=== PATIENT | female | born 1980 | race Hispanic/Latino ===

== ENCOUNTER 2019-07-18 18:58 | Inpatient (IN) | payer OTHER ==
[~2019-07-18] VITALS: Ht 162.6 cm; Wt 75.6 kg
[2019-07-18 01:10] VITALS: BP 142/70
[2019-07-18 20:09] LABS: BASOPHILS % (AUTO) 0.6 % (0.0-5.0); EOSINOPHILS % (AUTO) 1.1 % (0.0-8.0); HEMATOCRIT 32.4 % (36-48); LYMPHOCYTES % (AUTO) 9.5 % (21.0-51.0); MEAN CORPUSCULAR HGB CONC 35.8 g/dL (32.0-36.0); NEUTROPHILS % (AUTO) 80.9 % (40.0-77.0); PLATELET COUNT (AUTO) 242 K/uL (130-400); RED BLOOD CELL COUNT(AUTO) 3.52 MIL/uL (4.00-5.50); WHITE BLOOD COUNT (AUTO) 18.1 K/uL (4.8-10.8)
[2019-07-18 20:21] LABS: INR 1.27 (0.85-1.15); PARTIAL THROMBOPLASTIN TIME 30.6 SEC (26.3-35.5); PROTHROMBIN TIME 13.6 SEC (9.6-11.6)
[2019-07-18 20:22] LABS: CREATININE 0.9 mg/dL (0.5-1.5); POTASSIUM 3.7 mmol/L (3.5-5.1)
[2019-07-18] MEDS ORDERED: ONDANSETRON HCL 4 MG/2 ML VIAL ONE (20:24)
[2019-07-18] MEDS ORDERED: MORPHINE SULFATE 4 MG/1ML SYG ONE (20:24)
[2019-07-18] MEDS ORDERED: ZOSYN 3.375GM+NS 50ML 50 ML IV ONE (20:24)
[2019-07-18 20:30] LABS: PLATELET MORPHOLOGY LARGE PLTS PRESENT
[2019-07-18 20:35] LABS: ALBUMIN 1.6 g/dL (3.5-5.0)
[2019-07-18 20:38] LABS: BILIRUBIN,TOTAL 21.2 mg/dL (0.2-1.0)
[2019-07-18] MEDS ORDERED: DiphenhydrAMINE HCL 50 MG/ML VIAL IV PRN (22:30)
[2019-07-18] MEDS ORDERED: ONDANSETRON HCL 4 MG/2 ML VIAL IV PRN (22:30)
[2019-07-18] MEDS: LACTULOSE 20 GM/30 ML UDCUP PO SCH (22:30)
[2019-07-18] MEDS ORDERED: HYDRALAZINE HCL 20 MG/ML VIAL IV PRN (22:45)
[2019-07-18] MEDS ORDERED: MORPHINE SULFATE 2 MG/ML 1ML SYG ONE (23:05)
[2019-07-18] MEDS ORDERED: LACTULOSE 20 GM/30 ML UDCUP ONE (23:42)
[2019-07-18] MEDS ORDERED: PHARMACY COMMUNICATION MISC SCH (23:45)
[2019-07-19] VITALS (18 sets, daily range): BP systolic 115–142; BP diastolic 55–80
[2019-07-19] MEDS ORDERED: ATOR10 PO (01:50)
[2019-07-19] MEDS ORDERED: METO50TA18 PO (01:50)
[2019-07-19] MEDS ORDERED: HYDR-3830 PO (01:50)
[2019-07-19] MEDS ORDERED: DOXE50CA4 PO (01:50)
[2019-07-19] MEDS: MORPHINE SULFATE 2 MG/ML 1ML SYG IV PRN ×5 (03:05→22:24)
[2019-07-19] MEDS: LACTULOSE 20 GM/30 ML UDCUP PO SCH ×3 (03:56→21:17)
[2019-07-19] MEDS: ZOSYN 3.375GM+NS 50ML 50 ML IV SCH ×3 (03:56→21:17)
[2019-07-19 04:03] LABS: BASOPHILS % (AUTO) 0.6 % (0.0-5.0); EOSINOPHILS % (AUTO) 0.7 % (0.0-8.0); HEMATOCRIT 32.2 % (36-48); LYMPHOCYTES % (AUTO) 7.4 % (21.0-51.0); MEAN CORPUSCULAR HEMOGLOBIN 33.1 pg (27.0-33.0); MEAN CORPUSCULAR HGB CONC 36.6 g/dL (32.0-36.0); MEAN CORPUSCULAR VOLUME 90.4 fL (79-99); MONOCYTES % (AUTO) 7.4 % (3.0-13.0); NEUTROPHILS % (AUTO) 82.8 % (40.0-77.0); PLATELET COUNT (AUTO) 248 K/uL (130-400); RED BLOOD CELL COUNT(AUTO) 3.56 MIL/uL (4.00-5.50); RED CELL DISTRIBUTION WIDTH 20.3 % (11.0-15.5); WHITE BLOOD COUNT (AUTO) 18.9 K/uL (4.8-10.8)
[2019-07-19 04:43] LABS: CREATININE 0.9 mg/dL (0.5-1.5); POTASSIUM 3.8 mmol/L (3.5-5.1)
[2019-07-19] MEDS ORDERED: INSULIN HUMULIN R 100 UNIT/ML 3ML ONE (05:38)
[2019-07-19] MEDS: INSULIN HUMULIN R 100 UNIT/ML 3ML SQ SCH ×4 (05:41→20:22)
[2019-07-19] MEDS: PANTOPRAZOLE SODIUM 40 MG TABLET.DR PO SCH (08:57)
[2019-07-19] MEDS ORDERED: ALBUMIN (HUMAN) 25% 200 ML IV SCH (11:15)
--- NOTE | 2019-07-19 11:20 | NUR ---
U/S GUIDED PARACENTESIS PROCEDURE PERFORMED BY DR. CORBETT. PUNCTURE SITE RIGHT LOWER QUADRANT OF ABDOMEN AND PATIENT TOLERATED PROCEDURE WELL. TOTAL REMOVED 6.2 LITERS OF CLOUDY YELLOW ASCITES FLUID. END OF PROCEDURE AT 1135. CATHETER REMOVED AND DRESSING APPLIED. NO BLEEDING NOTED. ALBUMIN 25% 50 GRAMS ORDERED PER [facility] ALBUMIN PROTOCOL TO BE GIVEN UPON ARRIVAL TO FLOOR. CALLED REPORT TO CARMEN MALDONADO. PATIENT TRANSPORTED VIA BED TO ROOM 312 @ 1205. PT STABLE, AAO X3 WITH NO C/O PAIN. SPECIMEN COLLECTED AND SENT TO LAB. Addendum: 07/19/19 at 1446 by ADAM MENJIVAR RN RN U/S GUIDED PARACENTESIS PROCEDURE PERFORMED BY DR. CORBETT. PUNCTURE SITE RIGHT LOWER QUADRANT OF ABDOMEN AND PATIENT TOLERATED PROCEDURE WELL. TOTAL REMOVED 3.5 LITERS OF CLOUDY YELLOW ASCITES FLUID. END OF PROCEDURE AT 1135. CATHETER REMOVED AND DRESSING APPLIED. NO BLEEDING NOTED. ALBUMIN 25% 50 GRAMS ORDERED PER [facility] ALBUMIN PROTOCOL TO BE GIVEN UPON ARRIVAL TO FLOOR. CALLED REPORT TO CARMEN MALDONADO. PATIENT TRANSPORTED VIA BED TO ROOM 312 @ 1205. PT STABLE, AAO X3 WITH NO C/O PAIN. SPECIMEN COLLECTED AND SENT TO LAB.
[2019-07-19 11:27] LABS: ALBUMIN 1.6 g/dL (3.5-5.0)
[2019-07-19 11:29] LABS: BILIRUBIN,DIRECT 18.2 mg/dL (0.0-0.3); BILIRUBIN,TOTAL 21.2 mg/dL (0.2-1.0)
[2019-07-19] MEDS: DiphenhydrAMINE HCL 50 MG/ML VIAL IV PRN ×3 (12:42→22:24)
[2019-07-19 13:15] LABS: APPEARANCE BODY FLUID CLEAR (CLEAR); BODY FLUID WBC 43 /cu. mm.; COLOR,BODY FLUID YELLOW (LT YELLOW); SPECIMENTYPE,BODY FLUID ASCITES; TOTAL VOLUME,BODY FLUID 3500 mL
[2019-07-19 13:16] LABS: BODY FLUID RBC 59 /cu. mm.
[2019-07-19 13:49] LABS: BF LYMPHOCYTE 43 %; BF MESOTHELIAL 23 %; BF MONOCYTE 24 %
[2019-07-19] MEDS: FUROSEMIDE 20 MG TABLET PO SCH ×2 (14:01→23:47)
--- NOTE | 2019-07-19 17:05 | NUR ---
MET W PATIENT FOR DC PLANNING TY Vick HX OF LIVER DISEASE, STATES SYMPTOMS SINCE 10/2018, DX IN JANUARY 2019, PLACED ON TRANSPLANT LIST IN [place]- HAS HAD APPT IN [place], FOLLOWS WITH BLOOD WORK, LOST JOB IN [place] [facility], NO CALL BACK FROM [facility] AND NO BLOOD WORK SINCE THEN. NOT ON LACTULOSE, ON ANOTHER MED TO 'BRING DOWN THE BILIRUBIN ' STATES NOW NEEDS A WALKER BUT DOES NOT HAVE ONE. STATES TOO WEAK TO GET OUT OF BED. STATES NEEDS TO GET LIVER TRANSPLANT. WILL ASK PATIENT TO MAKE CONTACT WITH TR[facility]ANT CENTER- IF SHE IS STLL ON LIST, [facility] CAN SENT RECORDS/LABS FROM THIS ADMISSION TO KEEP HER UP TO DATE DCP WILL BE TO HOME. DISCUSSED CASE WITH DR. Ambriz, PT VERY SICK, W KAMARPLE WOUNDS PT MEETS CRITERIA FOR HOSPICE. CM TO FOLLOW Addendum: 07/19/19 at 1710 by DAWIT ELIZABETH RN CM Amended: Links added.
[2019-07-19] MEDS: SPIRONOLACTONE 25 MG TAB PO SCH (21:17)
[2019-07-20 00:02] VITALS: BP 124/61
[2019-07-20] MEDS: DiphenhydrAMINE HCL 50 MG/ML VIAL IV PRN ×5 (02:32→23:16)
[2019-07-20] MEDS: MORPHINE SULFATE 2 MG/ML 1ML SYG IV PRN ×2 (02:32→06:04)
[2019-07-20 04:08] VITALS: BP 118/54
[2019-07-20 04:51] LABS: BASOPHILS % (AUTO) 0.6 % (0.0-5.0); EOSINOPHILS % (AUTO) 1.4 % (0.0-8.0); HEMATOCRIT 29.9 % (36-48); LYMPHOCYTES % (AUTO) 10.5 % (21.0-51.0); MEAN CORPUSCULAR HEMOGLOBIN 32.8 pg (27.0-33.0); MEAN CORPUSCULAR HGB CONC 36.5 g/dL (32.0-36.0); MEAN CORPUSCULAR VOLUME 90.1 fL (79-99); NEUTROPHILS % (AUTO) 79.8 % (40.0-77.0); PLATELET COUNT (AUTO) 232 K/uL (130-400); RED BLOOD CELL COUNT(AUTO) 3.32 MIL/uL (4.00-5.50); RED CELL DISTRIBUTION WIDTH 20.4 % (11.0-15.5); WHITE BLOOD COUNT (AUTO) 16.2 K/uL (4.8-10.8)
[2019-07-20] MEDS: ZOSYN 3.375GM+NS 50ML 50 ML IV SCH ×3 (05:13→23:10)
[2019-07-20 05:36] LABS: ALBUMIN 1.4 g/dL (3.5-5.0); CREATININE 0.8 mg/dL (0.5-1.5); POTASSIUM 3.6 mmol/L (3.5-5.1); TOTAL PROTEIN, SERUM 4.4 g/dL (6.0-8.3)
[2019-07-20] MEDS: LACTULOSE 20 GM/30 ML UDCUP PO SCH ×3 (05:46→21:31)
[2019-07-20 05:47] LABS: BILIRUBIN,TOTAL 19.4 mg/dL (0.2-1.0)
[2019-07-20] MEDS: INSULIN HUMULIN R 100 UNIT/ML 3ML SQ SCH ×4 (06:11→21:00)
[2019-07-20 08:00] VITALS: BP 102/54
[2019-07-20] MEDS ORDERED: VANCOMYCIN PROTOCOL PER PHARMACY IV SCH (09:00)
[2019-07-20] MEDS: PANTOPRAZOLE SODIUM 40 MG TABLET.DR PO SCH (10:48)
[2019-07-20] MEDS: SPIRONOLACTONE 25 MG TAB PO SCH ×2 (10:48→21:31)
[2019-07-20] MEDS ORDERED: KETOROLAC TROMETHAMINE 15MG/ML ONE (10:51)
[2019-07-20] MEDS: VANCOMYCIN 1GM+NS 250ML 250 ML IV SCH ×2 (11:15→21:31)
[2019-07-20 12:00] VITALS: BP 127/64
[2019-07-20] MEDS: HONEY 1 APPL/ML TUBE TP SCH (13:33)
[2019-07-20] MEDS: FUROSEMIDE 20 MG TABLET PO SCH (13:34)
[2019-07-20 16:00] VITALS: BP 96/50
[2019-07-20] MEDS: KETOROLAC TROMETHAMINE 15MG/ML IV PRN ×2 (16:54→23:24)
[2019-07-20 19:58] LABS: AMPHET/METH SCREEN,URINE NEGATIVE (NEGATIVE); BARBITURATE SCREEN, URINE NEGATIVE (NEGATIVE); BENZODIAZEPINES SCREEN,URINE NEGATIVE (NEGATIVE); CANNABINOID SCREEN,URINE POSITIVE (NEGATIVE); COCAINE SCREEN,URINE NEGATIVE (NEGATIVE); OPIATE SCREEN,URINE POSITIVE (NEGATIVE); PHENCYCLIDINE SCREEN,URINE NEGATIVE (NEGATIVE)
[2019-07-20 20:00] VITALS: BP 107/53
[2019-07-20] MEDS: RIFAMPIN 300 MG CAPSULE PO SCH (21:31)
[2019-07-21] VITALS (7 sets, daily range): BP systolic 106–126; BP diastolic 54–61
[2019-07-21] MEDS: FUROSEMIDE 20 MG TABLET PO SCH (00:03)
[2019-07-21] MEDS: ZOSYN 3.375GM+NS 50ML 50 ML IV SCH ×3 (05:14→21:31)
[2019-07-21] MEDS: DiphenhydrAMINE HCL 50 MG/ML VIAL IV PRN ×3 (05:26→22:29)
[2019-07-21] MEDS: KETOROLAC TROMETHAMINE 15MG/ML IV PRN (05:26)
[2019-07-21] MEDS: INSULIN HUMULIN R 100 UNIT/ML 3ML SQ SCH ×4 (05:28→21:00)
[2019-07-21 05:54] LABS: BASOPHILS % (AUTO) 0.7 % (0.0-5.0); EOSINOPHILS % (AUTO) 1.8 % (0.0-8.0); HEMATOCRIT 30.5 % (36-48); LYMPHOCYTES % (AUTO) 10.4 % (21.0-51.0); MEAN CORPUSCULAR HGB CONC 36.4 g/dL (32.0-36.0); MEAN CORPUSCULAR VOLUME 90.8 fL (79-99); MONOCYTES % (AUTO) 7.3 % (3.0-13.0); PLATELET COUNT (AUTO) 223 K/uL (130-400); RED BLOOD CELL COUNT(AUTO) 3.36 MIL/uL (4.00-5.50); RED CELL DISTRIBUTION WIDTH 20.5 % (11.0-15.5); WHITE BLOOD COUNT (AUTO) 12.6 K/uL (4.8-10.8)
[2019-07-21 06:19] LABS: ALBUMIN 1.3 g/dL (3.5-5.0); CREATININE 1.2 mg/dL (0.5-1.5); POTASSIUM 3.6 mmol/L (3.5-5.1); TOTAL PROTEIN, SERUM 4.2 g/dL (6.0-8.3)
[2019-07-21 06:21] LABS: BILIRUBIN,TOTAL 19.1 mg/dL (0.2-1.0)
[2019-07-21] MEDS: LACTULOSE 20 GM/30 ML UDCUP PO SCH ×3 (06:56→21:35)
[2019-07-21] MEDS: SPIRONOLACTONE 25 MG TAB PO SCH (09:33)
[2019-07-21] MEDS: PANTOPRAZOLE SODIUM 40 MG TABLET.DR PO SCH (09:33)
[2019-07-21] MEDS: RIFAMPIN 300 MG CAPSULE PO SCH ×2 (09:33→21:31)
[2019-07-21] MEDS: VANCOMYCIN 1GM+NS 250ML 250 ML IV SCH ×2 (09:34→21:00)
[2019-07-21] MEDS ORDERED: RENAL DOSE IV SCH (10:15)
[2019-07-21] MEDS: HONEY 1 APPL/ML TUBE TP SCH (12:17)
--- NOTE | 2019-07-21 21:29 | NUR ---
Re: trough 24.3 Scheduled Vancomycin at this time held due to elevated trough 24.3
[2019-07-22] MEDS: DiphenhydrAMINE HCL 50 MG/ML VIAL IV PRN ×4 (02:04→21:45)
[2019-07-22 03:37] VITALS: BP 103/61
[2019-07-22 05:44] LABS: BASOPHILS % (AUTO) 0.7 % (0.0-5.0); EOSINOPHILS % (AUTO) 1.4 % (0.0-8.0); HEMATOCRIT 31.9 % (36-48); LYMPHOCYTES % (AUTO) 7.9 % (21.0-51.0); MEAN CORPUSCULAR HEMOGLOBIN 32.8 pg (27.0-33.0); MEAN CORPUSCULAR HGB CONC 35.7 g/dL (32.0-36.0); MEAN CORPUSCULAR VOLUME 91.7 fL (79-99); MONOCYTES % (AUTO) 6.9 % (3.0-13.0); NEUTROPHILS % (AUTO) 82.3 % (40.0-77.0); PLATELET COUNT (AUTO) 238 K/uL (130-400); RED BLOOD CELL COUNT(AUTO) 3.48 MIL/uL (4.00-5.50); RED CELL DISTRIBUTION WIDTH 21.1 % (11.0-15.5); WHITE BLOOD COUNT (AUTO) 17.2 K/uL (4.8-10.8)
[2019-07-22] MEDS: INSULIN HUMULIN R 100 UNIT/ML 3ML SQ SCH ×4 (05:57→20:29)
[2019-07-22] MEDS: ZOSYN 3.375GM+NS 50ML 50 ML IV SCH ×3 (05:57→20:28)
[2019-07-22 06:09] LABS: ALBUMIN 1.3 g/dL (3.5-5.0); CREATININE 1.2 mg/dL (0.5-1.5); POTASSIUM 3.6 mmol/L (3.5-5.1); TOTAL PROTEIN, SERUM 4.1 g/dL (6.0-8.3)
[2019-07-22 06:31] LABS: BILIRUBIN,TOTAL 19.5 mg/dL (0.2-1.0)
--- NOTE | 2019-07-22 07:08 | NUR ---
Re: Scheduled Lactulose Incoming shift Jarrod MORALES made aware that scheduled Lactulose for 629 still pending to be given as pt fell asleep at around 0500. Pt noted sleeps at interval due to claimed of being in pain/ itching, but noted falls back to sleep after Benadryl is given.
[2019-07-22 08:26] VITALS: BP 115/53
[2019-07-22] MEDS: RIFAMPIN 300 MG CAPSULE PO SCH ×2 (08:41→20:28)
[2019-07-22] MEDS: PANTOPRAZOLE SODIUM 40 MG TABLET.DR PO SCH (08:41)
[2019-07-22] MEDS: LACTULOSE 20 GM/30 ML UDCUP PO SCH ×3 (08:41→21:42)
[2019-07-22] MEDS: VANCOMYCIN 1GM+NS 250ML 250 ML IV SCH ×2 (10:10→20:28)
[2019-07-22 11:57] VITALS: BP 121/71
[2019-07-22] MEDS ORDERED: ZOSYN 3.375GM+NS 50ML 50 ML IV ONE (12:02)
[2019-07-22] MEDS: HONEY 1 APPL/ML TUBE TP SCH (12:57)
[2019-07-22] MEDS ORDERED: ACETAMINOPHEN EXTRA STRENGTH 500 MG TABLET ONE (14:09)
[2019-07-22 16:00] VITALS: BP 139/69
[2019-07-22 19:00] VITALS: BP 116/63
[2019-07-22] MEDS: ACETAMINOPHEN EXTRA STRENGTH 500 MG TABLET PO PRN (20:29)
--- NOTE | 2019-07-22 20:30 | NUR ---
MEDS PT CLAIMS OF PAINS ON HER LEGS. SHIFT ASSESSMENT DONE, PLEASE REFER TO CHART. DUE MEDS ADMINISTERED, TOLERATED WELL. INSERTED SECOND PIV FOR IV ANTIBIOTIC INFUSION.. TOLERATED INSERTION WELL. TYLENOL PO GIVEN FOR PAINS. KEPT RESTED AND COMFORTABLE IN BED. GIVEN JUICE AND APPLE SAUCE REQUESTED. WILL RE-ASSESS PT. Addendum: 07/23/19 at 0039 by АНДРЕЙ SANDHU RN RN Amended: Links added.
--- NOTE | 2019-07-22 21:45 | NUR ---
MEDS PT COMPLAINTS OF ITCHING, BENADRYL IV ADMINISTERED, TOLERATED WELL. KEPT COMFORTABLE IN BED. WILL MONITOR PT.
[2019-07-22 23:00] VITALS: BP 122/62
--- NOTE | 2019-07-22 23:35 | NUR ---
PAIN PT CALLS AND CLAIMS OF PAINS ON HER LEGS. CALLED VALARIE CERAMIC CHEMIST SENIOR PHARMACY TECHNICIAN FOR HOSPITALIST, VIA ANSWERING SERVICE. CERAMIC CHEMIST CALLED BACK AND REFERRED PT'S PAINS. NEW MED ORDER FOR ONE TIME MORPHINE GIVEN. WILL MEDICATE PT.
[2019-07-22] MEDS ORDERED: MORPHINE SULFATE 2 MG/ML 1ML SYG ONE (23:41)
[2019-07-22] MEDS ORDERED: MORPHINE SULFATE 2 MG/ML 1ML SYG IVP ONE (23:45)
--- NOTE | 2019-07-23 02:00 | NUR ---
ITCHING PT COMPLAINTS OF GENERALIZED ITCHING. MEDICATED WITH BENADRYL IV. ENCOURAGED TO REST AND SLEEP. CALL LIGHT WITHIN REACH. WILL RE-ASSESS PT.
[2019-07-23] MEDS: DiphenhydrAMINE HCL 50 MG/ML VIAL IV PRN ×4 (02:08→22:04)
[2019-07-23 03:00] VITALS: BP 127/68
[2019-07-23] MEDS: ZOSYN 3.375GM+NS 50ML 50 ML IV SCH (05:07)
--- NOTE | 2019-07-23 05:07 | NUR ---
MEDS PT IS FAIRLY ASLEEP. NO DISTRESS NOTED. IV ZOSYN HUNG. PO LACTULOSE NOT GIVEN PT HAVE HAD SEVERAL BM'S THROUGHOUT THE SHIFT AND PT REFUSES TO TAKE MED. FOR MORE CARE.
[2019-07-23] MEDS: ACETAMINOPHEN EXTRA STRENGTH 500 MG TABLET PO PRN ×3 (05:10→16:33)
[2019-07-23] MEDS: LACTULOSE 20 GM/30 ML UDCUP PO SCH ×3 (05:38→21:54)
[2019-07-23] MEDS: INSULIN HUMULIN R 100 UNIT/ML 3ML SQ SCH ×4 (05:51→21:00)
[2019-07-23 07:30] VITALS: BP 134/69
[2019-07-23 08:38] LABS: BASOPHILS % (AUTO) 0.6 % (0.0-5.0); EOSINOPHILS % (AUTO) 1.5 % (0.0-8.0); HEMATOCRIT 35.1 % (36-48); LYMPHOCYTES % (AUTO) 10.1 % (21.0-51.0); MEAN CORPUSCULAR HEMOGLOBIN 33.2 pg (27.0-33.0); MEAN CORPUSCULAR HGB CONC 36.2 g/dL (32.0-36.0); MEAN CORPUSCULAR VOLUME 91.6 fL (79-99); MONOCYTES % (AUTO) 7.1 % (3.0-13.0); PLATELET COUNT (AUTO) 252 K/uL (130-400); RED BLOOD CELL COUNT(AUTO) 3.83 MIL/uL (4.00-5.50); RED CELL DISTRIBUTION WIDTH 21.2 % (11.0-15.5); WHITE BLOOD COUNT (AUTO) 16.3 K/uL (4.8-10.8)
[2019-07-23 09:10] LABS: ALBUMIN 1.4 g/dL (3.5-5.0); POTASSIUM 3.8 mmol/L (3.5-5.1); TOTAL PROTEIN, SERUM 4.5 g/dL (6.0-8.3)
[2019-07-23 09:13] LABS: BILIRUBIN,TOTAL 20.5 mg/dL (0.2-1.0)
[2019-07-23] MEDS: PANTOPRAZOLE SODIUM 40 MG TABLET.DR PO SCH (10:12)
[2019-07-23] MEDS: RIFAMPIN 300 MG CAPSULE PO SCH (10:12)
[2019-07-23 11:00] VITALS: BP 129/63
--- NOTE | 2019-07-23 11:00 | NUR ---
DISCUSSED CASE WITH DR. YBARRA. SEVERE LIVER DISEASE. CM ASKING RE: PALLIATIVE CARE APPROACH? POSSIBLE HOSPICE? STATES OPTIMUM PLAN IS TO HAVE GI TO DISCUSS STAGE OF LIVER DISEASE PRIOR TO DISCUSSING PALLIATIVE CARE. CM TO FOLLOW AND ASSIST NEEDED. MAY NEED [facility] APPROVIAL ON DISCHARGE Addendum: 07/24/19 at 0859 by DAWIT ELIZABETH RN CM Amended: Links added.
[2019-07-23] MEDS: HONEY 1 APPL/ML TUBE TP SCH (12:45)
[2019-07-23 16:00] VITALS: BP 148/61
[2019-07-23] MEDS: CHOLESTYRAMINE PACKET 4 GM PACKET PO SCH ×2 (16:29→21:53)
[2019-07-23] MEDS: AMOXICILLIN/POTASSIUM CLAV 500-125 TABLET PO SCH ×2 (16:29→21:54)
[2019-07-23] MEDS: FUROSEMIDE 20 MG TABLET PO SCH (16:30)
[2019-07-23 20:25] VITALS: BP 126/64
[2019-07-23] MEDS: CHLORDIAZEPOXIDE HCL 25 MG CAP PO SCH (21:53)
[2019-07-23] MEDS: MIRTAZAPINE 15 MG TABLET PO SCH (21:53)
[2019-07-23] MEDS: TRAMADOL HCL 50 MG TABLET PO PRN (21:54)
[2019-07-23 23:57] VITALS: BP 136/69
[2019-07-24] MEDS: ACETAMINOPHEN EXTRA STRENGTH 500 MG TABLET PO PRN (01:55)
[2019-07-24] MEDS: AMOXICILLIN/POTASSIUM CLAV 500-125 TABLET PO SCH ×3 (03:24→23:06)
[2019-07-24] MEDS: DiphenhydrAMINE HCL 50 MG/ML VIAL IV PRN ×3 (03:25→19:45)
[2019-07-24 03:48] VITALS: BP 128/76
[2019-07-24] MEDS: TRAMADOL HCL 50 MG TABLET PO PRN ×2 (05:21→19:45)
[2019-07-24] MEDS: INSULIN HUMULIN R 100 UNIT/ML 3ML SQ SCH ×4 (05:52→21:00)
[2019-07-24] MEDS: LACTULOSE 20 GM/30 ML UDCUP PO SCH ×3 (05:52→21:00)
[2019-07-24 05:56] LABS: ALBUMIN 1.6 g/dL (3.5-5.0); POTASSIUM 3.8 mmol/L (3.5-5.1); TOTAL PROTEIN, SERUM 4.9 g/dL (6.0-8.3)
[2019-07-24 06:01] LABS: BILIRUBIN,DIRECT 18.3 mg/dL (0.0-0.3); BILIRUBIN,TOTAL 20.9 mg/dL (0.2-1.0)
[2019-07-24 07:30] VITALS: BP 129/67
[2019-07-24] MEDS: CHLORDIAZEPOXIDE HCL 25 MG CAP PO SCH ×2 (09:00→23:10)
[2019-07-24] MEDS ORDERED: KETOROLAC TROMETHAMINE 15MG/ML IV PRN (09:00)
--- NOTE | 2019-07-24 09:00 | NUR ---
DISPO PLAN TO HOME WITH SUPPORT FOR WOUND CARE AND MED MANAGEMENT. CM TO DISCUSS SUPPPORT SYSTEMS WITH PATIENT Addendum: 07/24/19 at 0900 by DAWIT ELIZABETH RN CM Amended: Links added.
[2019-07-24] MEDS: SPIRONOLACTONE 25 MG TAB PO SCH (10:21)
[2019-07-24] MEDS: FUROSEMIDE 20 MG TABLET PO SCH (10:22)
[2019-07-24] MEDS: PANTOPRAZOLE SODIUM 40 MG TABLET.DR PO SCH (10:22)
[2019-07-24] MEDS: CITALOPRAM 20 MG TABLET PO SCH (10:22)
[2019-07-24] MEDS: CHOLESTYRAMINE PACKET 4 GM PACKET PO SCH ×2 (10:23→23:06)
[2019-07-24] MEDS: ENOXAPARIN SODIUM 30 MG/0.3 ML SQ SCH (10:36)
[2019-07-24 11:00] VITALS: BP 133/70
[2019-07-24 16:00] VITALS: BP 145/74
[2019-07-24] MEDS ORDERED: SPIRONOLACTONE 25 MG TAB PO SCH (17:00)
[2019-07-24] MEDS: HONEY 1 APPL/ML TUBE TP SCH (18:35)
[2019-07-24 19:40] VITALS: BP 130/61
[2019-07-24] MEDS: FUROSEMIDE 40 MG TABLET PO SCH (23:06)
[2019-07-24] MEDS: MIRTAZAPINE 15 MG TABLET PO SCH (23:06)
[2019-07-24 23:24] VITALS: BP 138/67
[2019-07-25] MEDS: DiphenhydrAMINE HCL 50 MG/ML VIAL IV PRN ×4 (02:44→20:48)
[2019-07-25] MEDS: TRAMADOL HCL 50 MG TABLET PO PRN ×2 (02:48→20:55)
[2019-07-25 03:25] VITALS: BP 129/67
[2019-07-25] MEDS: AMOXICILLIN/POTASSIUM CLAV 500-125 TABLET PO SCH ×3 (03:55→20:47)
[2019-07-25 06:50] LABS: ALBUMIN 1.3 g/dL (3.5-5.0); CREATININE 0.9 mg/dL (0.5-1.5); POTASSIUM 3.5 mmol/L (3.5-5.1); TOTAL PROTEIN, SERUM 4.2 g/dL (6.0-8.3)
[2019-07-25] MEDS: INSULIN HUMULIN R 100 UNIT/ML 3ML SQ SCH ×4 (07:02→20:56)
[2019-07-25 08:00] VITALS: BP 131/67
[2019-07-25] MEDS: SPIRONOLACTONE 25 MG TAB PO SCH (08:38)
[2019-07-25] MEDS: FUROSEMIDE 40 MG TABLET PO SCH ×2 (08:39→20:47)
[2019-07-25] MEDS: PANTOPRAZOLE SODIUM 40 MG TABLET.DR PO SCH (08:39)
[2019-07-25] MEDS: CITALOPRAM 20 MG TABLET PO SCH (08:39)
[2019-07-25] MEDS: LACTULOSE 20 GM/30 ML UDCUP PO SCH ×2 (08:40→20:56)
[2019-07-25] MEDS: ENOXAPARIN SODIUM 30 MG/0.3 ML SQ SCH (08:41)
[2019-07-25] MEDS: CHOLESTYRAMINE PACKET 4 GM PACKET PO SCH ×2 (08:47→20:47)
[2019-07-25] MEDS: CHLORDIAZEPOXIDE HCL 25 MG CAP PO SCH (08:54)
[2019-07-25 11:00] VITALS: BP 133/70
[2019-07-25 13:11] LABS: PARTIAL THROMBOPLASTIN TIME 54.6 SEC (26.3-35.5)
[2019-07-25 13:17] LABS: INR 4.13 (0.85-1.15); PROTHROMBIN TIME 42.2 SEC (9.6-11.6)
--- NOTE | 2019-07-25 13:32 | NUR ---
RDSCREEN - LOS X 7 Pt admitted with alcoholic liver cirrhosis, Ascites, BLE swelling. Pt with Heart Healthy diet order in place. No complaint of GI distress, Fair PO intake at 75%, as per EMR. Pt with Contact isolation; RD attempt to call Pt x2 for nutritional assessment and education, no answer. Pt with BLE 2+ pitting edema. Pt with Left and Right Leg ulcers. Recommend Multivitamin and Thiamine supplementation QD Recommend Kunal BID, 500mg Vit C (BID), 220mg ZnSO4 (QD) for wound healing support Recommend 30mL ProMod TID RD to follow up with Nutrition education RD to continue to monitor. Please notify RD as additional nutrition concerns arise. Thank you. Addendum: 07/25/19 at [address] RD Amended: Links added.
--- NOTE | 2019-07-25 13:36 | NUR ---
NUTRITION EDUCATION ATTEMPT Pt with Contact isolation; RD attempt to call Pt x2 for Cirrhosis and Kunal nutrition education, no answer. RD to place reference materials in Pt chart and follow up for nutrition education. Addendum: 07/25/19 at [address] RD Amended: Links added.
--- NOTE | 2019-07-25 14:00 | NUR ---
DR. YBARRA AWARE OF PT 42.[address] OF THE BRAIN/ HEAD ORDERED. HE ALSO SPOKE WITH DR. DE LA ROSA REGARDING MRCP. NO FUTCHER ORDERS AT THIS TIME.
[2019-07-25] MEDS: HONEY 1 APPL/ML TUBE TP SCH (14:44)
[2019-07-25] MEDS ORDERED: PHYTONADIONE 10 MG/1 ML AMP IM SCH (14:45)
[2019-07-25 16:00] VITALS: BP 144/60
--- NOTE | 2019-07-25 16:47 | NUR ---
Palliative/Hospice SW met with pt who was emotional, states she is in agreement with MD recommendation for hospice. Pt wants to go home to aunts house at discharge. Sw asked if I could talk to aunt and verify that she is ok with this dcp. Pt gave consent for Sw to call aunt. Sw provided pt with emotional support. Sw spoke to aunt Corin Barnes. Aunt states that her of same thing 2 years ago while on hospice. Aunt states that she is 76yrs old and can not be pt's caregiver. Aunt states that she will need to discuss dcp with pt's father who lives in [place]. Aunt states that pt's father mentioned taking pt back to [place] at [place]. Sw educated on hospice house with [facility] if she remains in the [place]. Aunt to come visit with pt tomorrow after aunt talks to pt's father. Aunt has contact # for [facility] for updates.
[2019-07-25] MEDS: MIRTAZAPINE 15 MG TABLET PO SCH (20:47)
[2019-07-25 21:30] VITALS: BP 129/61
[2019-07-26] VITALS: BP 123/66
[2019-07-26] MEDS: DiphenhydrAMINE HCL 50 MG/ML VIAL IV PRN ×4 (03:46→20:36)
[2019-07-26] MEDS: AMOXICILLIN/POTASSIUM CLAV 500-125 TABLET PO SCH ×3 (03:51→20:35)
[2019-07-26 03:58] VITALS: BP 139/58
[2019-07-26 05:38] LABS: BASOPHILS % (AUTO) 0.9 % (0.0-5.0); EOSINOPHILS % (AUTO) 1.6 % (0.0-8.0); HEMATOCRIT 32.1 % (36-48); LYMPHOCYTES % (AUTO) 10.2 % (21.0-51.0); MEAN CORPUSCULAR HGB CONC 35.8 g/dL (32.0-36.0); MEAN CORPUSCULAR VOLUME 92.2 fL (79-99); MONOCYTES % (AUTO) 6.4 % (3.0-13.0); NEUTROPHILS % (AUTO) 80.1 % (40.0-77.0); PLATELET COUNT (AUTO) 273 K/uL (130-400); RED BLOOD CELL COUNT(AUTO) 3.48 MIL/uL (4.00-5.50)
[2019-07-26 05:49] LABS: INR 1.85 (0.85-1.15); PARTIAL THROMBOPLASTIN TIME 39.2 SEC (26.3-35.5); PROTHROMBIN TIME 19.5 SEC (9.6-11.6)
[2019-07-26 06:03] LABS: ALBUMIN 1.4 g/dL (3.5-5.0); CREATININE 0.8 mg/dL (0.5-1.5); POTASSIUM 3.6 mmol/L (3.5-5.1); TOTAL PROTEIN, SERUM 4.6 g/dL (6.0-8.3)
[2019-07-26 06:12] LABS: BILIRUBIN,TOTAL 16.7 mg/dL (0.2-1.0)
[2019-07-26] MEDS: INSULIN HUMULIN R 100 UNIT/ML 3ML SQ SCH ×4 (07:30→20:23)
[2019-07-26 08:00] VITALS: BP 135/70
[2019-07-26] MEDS: LACTULOSE 20 GM/30 ML UDCUP PO SCH ×2 (09:00→20:34)
[2019-07-26] MEDS: CHOLESTYRAMINE PACKET 4 GM PACKET PO SCH ×2 (09:03→20:35)
[2019-07-26] MEDS: ENOXAPARIN SODIUM 30 MG/0.3 ML SQ SCH (09:04)
[2019-07-26] MEDS: PANTOPRAZOLE SODIUM 40 MG TABLET.DR PO SCH (09:05)
[2019-07-26] MEDS: FUROSEMIDE 40 MG TABLET PO SCH ×2 (09:05→20:35)
[2019-07-26] MEDS: SPIRONOLACTONE 25 MG TAB PO SCH (09:06)
[2019-07-26] MEDS: CITALOPRAM 20 MG TABLET PO SCH (09:13)
[2019-07-26] MEDS: TRAMADOL HCL 50 MG TABLET PO PRN ×2 (11:30→23:45)
--- NOTE | 2019-07-26 11:57 | NUR ---
DCP: HOSPICE AT [facility] DEUCE called to room by pt's aunt Corin Barnes. Pt stated that she has decided to go to [facility] with any accepting josafat hospice. Family has talked about options and feel that there is not anyone that can provide care for pt in their home. DEUCE educated pt and aunt on process for josafat hospice referral and [facility]. Both voiced understanding. DEUCE spoke to MARIAM regarding pt's decision and dcp. CM to inform Dr Caruso for order DEUCE spoke to Solange at [facility] and pt was placed on waiting list. DEUCE spoke to Tiff at [facility], they will review pt's records for possible acceptance. Will send referral once order recd
[2019-07-26 12:00] VITALS: BP_SYST 123; BP_SYST 137; BP_DIAS 63; BP_DIAS 84
--- NOTE | 2019-07-26 12:35 | NUR ---
Pending [facility] acceptance Nurse Foreman recd order from Dr Caruso for hospice. SW faxed pt information to [facility] and [facility] for review and possible acceptance. Nurse Foreman also requested Covid 19 test for [facility] acceptance. Waiting on acceptance
[2019-07-26] MEDS: HONEY 1 APPL/ML TUBE TP SCH (13:06)
--- NOTE | 2019-07-26 14:23 | NUR ---
HOSPICE DENIALS SW spoke to [facility], [facility], [facility] and [facility], they are denied pt, they have no josafat beds at this time. Sw call Mathieu Cardona at [facility] hospice and they are reviewing
--- NOTE | 2019-07-26 14:47 | NUR ---
spoke to patient, PATIENT STATES USED TO BE CHRISTIAN. STATES WOULD LIKE TO HAVE [facility] VISIT CALL MADE TO [facility] JORDAN, SHANNON VISIT TODAY Addendum: 07/26/19 at 1452 by DAWIT ELIZABETH RN CM Amended: Links added.
--- NOTE | 2019-07-26 14:52 | NUR ---
DISPOSITION EXPECT TO BE TO [facility], VIA EMS, WITH [facility], IF PENDING COVID TEST IS NEGATIVE Addendum: 07/26/19 at 1453 by DAWIT ELIZABETH RN CM Amended: Links added.
--- NOTE | 2019-07-26 15:23 | NUR ---
CHANGE IN DCP Sw recd call from pt's aunt Corin Barnes. Pt's father called and stated that he offered $20,000 for a donor to give pt a piece of their liver, and he has located someone. Father plans on taking donor to transplant center to see if they are compatible with pt. Father asking for 2 days to get this done before sending pt to hospice. Aunt states pt wants to wait and give father opportunity to have donor tested. CM informed of above.
--- NOTE | 2019-07-26 15:28 | NUR ---
[facility] DENIED PT, they have no josafat beds at this time
[2019-07-26 16:00] VITALS: BP 125/66
--- NOTE | 2019-07-26 17:30 | NUR ---
DRESSING DRESSING CHANGED CLEANED WITH NS, APPLIED META HONEY, VASELINE GAUZE, 4X4 AND MAGDA KERLIX. BILATERAL LEGS, PICTURE TAKEN
[2019-07-26 20:00] VITALS: BP 149/74
[2019-07-26] MEDS: MIRTAZAPINE 15 MG TABLET PO SCH (20:35)
[2019-07-27] VITALS (7 sets, daily range): BP systolic 123–152; BP diastolic 63–76
[2019-07-27] MEDS: DiphenhydrAMINE HCL 50 MG/ML VIAL IV PRN ×5 (00:34→22:19)
[2019-07-27 05:36] LABS: ALBUMIN 1.4 g/dL (3.5-5.0); CREATININE 0.8 mg/dL (0.5-1.5); MAGNESIUM 1.9 mg/dL (1.80-2.40); POTASSIUM 3.5 mmol/L (3.5-5.1); TOTAL PROTEIN, SERUM 4.8 g/dL (6.0-8.3)
[2019-07-27 05:42] LABS: BILIRUBIN,TOTAL 18.1 mg/dL (0.2-1.0)
[2019-07-27] MEDS: INSULIN HUMULIN R 100 UNIT/ML 3ML SQ SCH ×4 (05:52→20:46)
[2019-07-27] MEDS: AMOXICILLIN/POTASSIUM CLAV 500-125 TABLET PO SCH ×3 (05:53→20:47)
[2019-07-27] MEDS: LACTULOSE 20 GM/30 ML UDCUP PO SCH ×2 (09:00→20:47)
[2019-07-27] MEDS: SPIRONOLACTONE 25 MG TAB PO SCH (10:22)
[2019-07-27] MEDS: CHOLESTYRAMINE PACKET 4 GM PACKET PO SCH ×2 (10:22→20:48)
[2019-07-27] MEDS: FUROSEMIDE 40 MG TABLET PO SCH ×2 (10:23→20:48)
[2019-07-27] MEDS: PANTOPRAZOLE SODIUM 40 MG TABLET.DR PO SCH (10:23)
[2019-07-27] MEDS: CITALOPRAM 20 MG TABLET PO SCH (10:23)
[2019-07-27] MEDS: ENOXAPARIN SODIUM 30 MG/0.3 ML SQ SCH (10:26)
--- NOTE | 2019-07-27 15:46 | NUR ---
DCP: HOME TO [place] WITH [facility] [phone] [facility] recd mary jane from , pt's father has made arrangements for pt with [facility] and will be picking pt up tomorrow to take to [place]. STARLA was signed for referral Sw faxed pt information to [facility] [phone]. [facility] spoke to Tatyana who states they will see pt on Tuesday, so send pt with enough pain meds till then. made aware [facility] spoke to Nuris at [facility]. They have recd all pt info. Nuris spoke to pt's step sister and family is aware that they will be by Tuesday to admit.
[2019-07-27] MEDS: HONEY 1 APPL/ML TUBE TP SCH (17:27)
[2019-07-27] MEDS: TRAMADOL HCL 50 MG TABLET PO PRN (17:28)
[2019-07-27] MEDS: MIRTAZAPINE 15 MG TABLET PO SCH (20:48)
--- NOTE | 2019-07-27 23:53 | NUR ---
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 PAIN OF A 10 ON A SCALE OF 0-10 REPORTED FOR EBONY AND DAVID CHANEY.
[2019-07-28 00:12] VITALS: BP 136/69
[2019-07-28] MEDS ORDERED: MORPHINE SULFATE 2 MG/ML 1ML SYG IVP ONE (00:30)
[2019-07-28] MEDS ORDERED: MORPHINE SULFATE 2 MG/ML 1ML SYG ONE (00:50)
[2019-07-28] MEDS: DiphenhydrAMINE HCL 50 MG/ML VIAL IV PRN ×2 (02:47→08:59)
[2019-07-28 04:12] VITALS: BP 120/78
[2019-07-28] MEDS: AMOXICILLIN/POTASSIUM CLAV 500-125 TABLET PO SCH (04:59)
[2019-07-28] MEDS: TRAMADOL HCL 50 MG TABLET PO PRN (05:00)
[2019-07-28] MEDS: INSULIN HUMULIN R 100 UNIT/ML 3ML SQ SCH (05:40)
[2019-07-28 07:26] VITALS: BP 112/63
[2019-07-28] MEDS ORDERED: LACT PO (08:52)
[2019-07-28] MEDS ORDERED: FURO40TA7 PO (08:52)
[2019-07-28] MEDS ORDERED: CHOL4PAC21 PO (08:52)
[2019-07-28] MEDS ORDERED: SPIR25TA PO (08:52)
[2019-07-28] MEDS: SPIRONOLACTONE 25 MG TAB PO SCH (08:59)
[2019-07-28] MEDS: LACTULOSE 20 GM/30 ML UDCUP PO SCH (09:00)
[2019-07-28] MEDS: PANTOPRAZOLE SODIUM 40 MG TABLET.DR PO SCH (09:00)
[2019-07-28] MEDS: CITALOPRAM 20 MG TABLET PO SCH (09:00)
[2019-07-28] MEDS: FUROSEMIDE 40 MG TABLET PO SCH (09:01)
[2019-07-28] MEDS: CHOLESTYRAMINE PACKET 4 GM PACKET PO SCH (09:01)
[2019-07-28] MEDS ORDERED: PANT40TA PO (09:06)
[2019-07-28] MEDS ORDERED: MIRT15TA PO (09:06)
[2019-07-28] MEDS ORDERED: CITA-106 PO (09:06)
[2019-07-28] MEDS ORDERED: AMOX-426 PO (09:10)
[2019-07-28] MEDS: ENOXAPARIN SODIUM 30 MG/0.3 ML SQ SCH (09:10)
[2019-07-28] MEDS ORDERED: POTASSIUM CHLORIDE 20 MEQ ERTAB PO PRN (09:30)
[2019-07-28] MEDS ORDERED: POTASSIUM CHLORIDE 20MEQ/100ML 100 ML IV PRN (09:30)
[2019-07-28] MEDS ORDERED: POTASSIUM CHLORIDE 10% ELIXIR 20 MEQ/15 ML UDCUP PO PRN (09:30)
[2019-07-28] MEDS ORDERED: LIDOCAINE HCL-MPF 1% 2ML VIAL IJ PRN (09:30)
[2019-07-28 10:45] VITALS: BP 98/65
[2019-07-28] MEDS: HONEY 1 APPL/ML TUBE TP SCH (12:52)
== END 2019-07-28 13:20 | disposition hospice, home (50) | DRG 871 ==
LOC: EDH 18:58 → EDHIP 18:59 → 3BH 07-19 01:12
PROVIDERS: ADMIT Internal Medicine; ATTEND Internal Medicine
PROC: 0W9G3ZZ Drainage of Peritoneal Cavity, Percutaneous Approach (ICD-10-PCS; principal; 2019-07-19)
DX: A41.9 Sepsis, unspecified organism (principal); K83.1 Obstruction of bile duct; E87.2 Acidosis; E72.20 Disorder of urea cycle metabolism, unspecified; L97.929 Non-pressure chronic ulcer of unspecified part of left lower leg with unspecified severity; N17.9 Acute kidney failure, unspecified; D68.9 Coagulation defect, unspecified; L97.919 Non-pressure chronic ulcer of unspecified part of right lower leg with unspecified severity; L03.119 Cellulitis of unspecified part of limb; E44.0 Moderate protein-calorie malnutrition; K70.31 Alcoholic cirrhosis of liver with ascites; L29.9 Pruritus, unspecified; E87.70 Fluid overload, unspecified; F32.9 Major depressive disorder, single episode, unspecified; I10 Essential (primary) hypertension; I25.10 Atherosclerotic heart disease of native coronary artery without angina pectoris; K59.00 Constipation, unspecified; K70.11 Alcoholic hepatitis with ascites; E88.09 Other disorders of plasma-protein metabolism, not elsewhere classified; R54 Age-related physical debility; L02.92 Furuncle, unspecified; Z51.5 Encounter for palliative care; E11.622 Type 2 diabetes mellitus with other skin ulcer; Z68.28 Body mass index [BMI] 28.0-28.9, adult; Z91.19 Patient's noncompliance with other medical treatment and regimen; Z95.1 Presence of aortocoronary bypass graft; Z88.8 Allergy status to other drugs, medicaments and biological substances
CPT/HCPCS: 36415; 49083; 70450; 71045; 74176; 74181; 76705; 80048; 80053; 80076; 80202; 80305; 82140; 82248; 82550; 82948; 83605; 83735; 83880; 84145; 84484; 85025; 85610; 85730; 87040; 87070; 87071; 87076; 87077; 87186; 87205; 87635; 89051; 93005; 93970; 97039; 99291; G0378; J1200; J1650; J1815; J1885; J2270; J2405; J2543; J3370; J3430; P9046